=== PATIENT | male | born 1955 | race Caucasian/White ===

== ENCOUNTER 2016-11-05 00:45 | Inpatient (IN) | payer OTHER, MEDICAID ==
[2016-11-05] VITALS (8 sets, daily range): BP systolic 137–218; BP diastolic 64–94; Ht 154.9 cm; Wt 57.8 kg
[~2016-11-05] VITALS: Ht 154.9 cm; Wt 57.8 kg
[2016-11-05 02:07] LABS: ALBUMIN 3.5 g/dL (3.4-5.0); BILIRUBIN TOTAL 0.49 mg/dL (0.20-1.00); CALCIUM 8.4 mg/dL (8.5-10.1); CARBON DIOXIDE 24.9 mmol/L (21-32); POTASSIUM SERUM 4.9 mmol/L (3.5-5.1); TOTAL PROTEIN, SERUM 8.7 g/dL (6.4-8.2)
[2016-11-05 02:08] LABS: CREATININE SERUM 6.3 mg/dL (0.7-1.3)
[2016-11-05 02:13] LABS: BASOPHIL % 1.2 % (0-2); PLATELET COUNT 195 x10^3mcL (130-400)
[2016-11-05] MEDS ORDERED: ENALAPRIL MALEA20 MG PO (03:20)
[2016-11-05] MEDS ORDERED: PHOSLO667 MG PO (03:21)
[2016-11-05] MEDS ORDERED: NIFEDIPINE60 MG PO (03:21)
[2016-11-05] MEDS ORDERED: CLONIDINE HCL0.2 MG PO (03:21)
[2016-11-05] MEDS ORDERED: TYLENOL EXTRA500 M3 PO (03:22)
[2016-11-05 05:42] LABS: AMYLASE 51 U/L (25-115); LIPASE 144 IU/L (73-393)
[2016-11-05 05:44] LABS: MAGNESIUM 2.5 mg/dL (1.8-2.4)
[2016-11-05 05:46] LABS: CHOLESTEROL/HDL RATIO 2.1
[2016-11-05 05:54] LABS: T3 TOTAL 0.94 ng/mL
[2016-11-05 06:02] LABS: FREE T4 1.37 ng/dL (0.76-1.46); FREE THYROXINE INDEX 4.2 ug/dL (1.4-4.5)
[2016-11-05 10:34] LABS: BASOPHIL % 0.6 % (0-2); PLATELET COUNT 167 x10^3mcL (130-400); RED CELL DISTRIBUTION WIDTH 13.9 % (11.5-14.5)
[2016-11-05 10:47] LABS: CALCIUM 8.2 mg/dL (8.5-10.1); CARBON DIOXIDE 28.1 mmol/L (21-32); POTASSIUM SERUM 5.1 mmol/L (3.5-5.1)
[2016-11-06] VITALS (8 sets, daily range): BP systolic 139–200; BP diastolic 60–83
[2016-11-06 02:35] LABS: microscopic required? YES; urine erythrocyte 1+ (NEGATIVE)
[2016-11-06 02:55] LABS: AMPHETAMINE QUAL UR NONE DETECTED (NEG <=1000)
[2016-11-06 06:29] LABS: BASOPHIL % 0.6 % (0-2); PLATELET COUNT 189 x10^3mcL (130-400); RED CELL DISTRIBUTION WIDTH 13.6 % (11.5-14.5)
[2016-11-06 06:34] LABS: CARBON DIOXIDE 27.3 mmol/L (21-32); MAGNESIUM 2.2 mg/dL (1.8-2.4); PHOSPHOROUS 4.8 mg/dL (2.5-4.9); POTASSIUM SERUM 5.2 mmol/L (3.5-5.1)
[2016-11-06 06:59] LABS: CREATININE SERUM 6.1 mg/dL (0.7-1.3)
[2016-11-07 05:27] VITALS: BP 163/71
[2016-11-07 06:41] LABS: BASOPHIL % 0.6 % (0-2); PLATELET COUNT 183 x10^3mcL (130-400); RED CELL DISTRIBUTION WIDTH 13.3 % (11.5-14.5)
[2016-11-07 06:50] LABS: CALCIUM 7.7 mg/dL (8.5-10.1); CARBON DIOXIDE 24.9 mmol/L (21-32); POTASSIUM SERUM 5.2 mmol/L (3.5-5.1)
[2016-11-07 06:52] LABS: CREATININE SERUM 8.2 mg/dL (0.7-1.3)
[2016-11-07] MEDS ORDERED: COL100 PO (07:40)
[2016-11-07] MEDS ORDERED: LIPI10 PO (07:43)
[2016-11-07] MEDS ORDERED: THERA TABS1 TAB PO (07:43)
[2016-11-07] MEDS ORDERED: ECO81 PO (07:43)
[2016-11-07 08:45] VITALS: BP 151/50; BP 158/72
[2016-11-07 09:42] VITALS: BP 158/72
== END 2016-11-07 10:15 | disposition home or self-care (01) | DRG 291 ==
LOC: ED 00:45 → DU 03:00
PROVIDERS: Emergency Medicine; Family Medicine; Internal Medicine; ADMIT Family Medicine
DX: I13.2 Hypertensive heart and chronic kidney disease with heart failure and with stage 5 chronic kidney disease, or end stage renal disease (principal); N18.6 End stage renal disease; N17.0 Acute kidney failure with tubular necrosis; I16.1 Hypertensive emergency; D68.69 Other thrombophilia; E11.59 Type 2 diabetes mellitus with other circulatory complications; E11.65 Type 2 diabetes mellitus with hyperglycemia; K21.9 Gastro-esophageal reflux disease without esophagitis; E04.1 Nontoxic single thyroid nodule; E83.41 Hypermagnesemia; E83.39 Other disorders of phosphorus metabolism; D63.1 Anemia in chronic kidney disease; E03.9 Hypothyroidism, unspecified; Z68.23 Body mass index [BMI] 23.0-23.9, adult; Z99.2 Dependence on renal dialysis; Z91.14 Patient's other noncompliance with medication regimen
CPT/HCPCS: 83880; 84439; C9113; J0360; J2060; J2270; J3490; J7030; Q0092